=== PATIENT | male | born 1970 | race Caucasian/White ===

== ENCOUNTER 2024-08-07 21:43 | Emergency (ER) | payer OTHER ==
[~2024-08-07] VITALS: Ht 165.1 cm; Wt 91.0 kg
[2024-08-07 22:11] VITALS: O2SAT 100
[2024-08-08] MEDS ORDERED: P20 MT (02:31)
[2024-08-08] MEDS: KETOROLAC 30MG/ML VIAL IM ONE (02:43)
[2024-08-08 02:46] VITALS: BP 130/77; PULSE 77; RESP 17; TEMP 36.78072; O2SAT 100
== END 2024-08-08 02:47 | disposition home or self-care (01) ==
LOC: ER 21:43
DX: M1A.9XX1 Chronic gout, unspecified, with tophus (tophi) (principal); I10 Essential (primary) hypertension
CPT/HCPCS: 73630; 96372; 99283